=== PATIENT | female | born 1975 | race Asian ===

== ENCOUNTER 2025-01-30 06:32 | Day surgery (SDC) | payer BC ==
[2025-01-27 11:13] LABS: Hematocrit 36.4 % (36.0-46.0)
[2025-01-27 11:15] LABS: Hemoglobin 12.0 g/dL (12.2-16.2); Mean Corpuscular Hemoglobin 26.6 pg (28.0-32.0); Mean Corpuscular Volume 80.5 fL (80.0-100.0); Nucleated Red Blood Cells % 0.0 %
[2025-01-27 11:22] LABS: Urine Protein, UAD Negative (Negative)
[2025-01-27 11:29] LABS: Alanine Aminotransferase 23 U/L (7-40); Alkaline Phosphatase 78 U/L (46-116); Anion Gap 9 (5-15); BUN/Creatinine Ratio 10.1 (10.0-20.0); Bilirubin, Total 0.3 mg/dL (0.2-1.0); Carbon Dioxide 25 mmol/L (20-31); Chloride 107 mmol/L (98-107); Potassium 3.7 mmol/L (3.5-5.1); Sodium 141 mmol/L (136-145); Total Protein 7.9 g/dL (5.7-8.2)
[2025-01-27 11:30] LABS: Glucose 94 mg/dL (74-106)
[2025-01-27 11:31] LABS: Albumin 5.0 g/dL (3.2-4.8); Blood Urea Nitrogen 9 mg/dL (9-23); Calcium 10.4 mg/dL (8.7-10.4); INR 0.96 (0.9-1.15); Partial Thromboplastin Time 27.6 SEC (24.5-34.5); Prothrombin Time 10.2 sec (9.3-11.8)
[~2025-01-30] VITALS: Ht 157.5 cm; Wt 83.9 kg
[~2025-01-30 06:32] MED LIST: AMLO1TAB23 PO; LOSA-535 PO; METO-159 PO
[2025-01-30] MEDS ORDERED: HYDR-4072 PO (07:14)
[2025-01-30] MEDS ORDERED: ZOFR4T PO (07:15)
[2025-01-30] MEDS ORDERED: IBUP-1456 PO (07:15)
[2025-01-30] MEDS ORDERED: fentaNYL CITRATE 100 MCG/2 ML VL ONE (07:56)
[2025-01-30] MEDS ORDERED: PROPOFOL 10 MG/ML 20 ML IV ONE (07:56)
[2025-01-30] MEDS ORDERED: HYDROmorphone HCL 2 MG/ML VL/or syr ONE (08:03)
[2025-01-30] MEDS ORDERED: ONDANSETRON HCL 4 MG/2 ML VIAL ONE (08:03)
[2025-01-30] MEDS: ceFAZolin 2 GM/D5W50ml 50 ML IV ONE (08:05)
--- NOTE | 2025-01-30 08:38 | DVHOP2 ---
Operative Report DATE OF OPERATION: 01/30/25 PREOPERATIVE DIAGNOSES: Abnormal uterine bleeding. POSTOPERATIVE DIAGNOSES: Abnormal uterine bleeding. SURGEON: Jennifer Boss D.O. ANESTHESIOLOGIST: katiana TYPE OF ANESTHESIA : MAC. CONSENT: The patient was informed of the risks and benefits of the procedure. The patient was informed of the risks and benefits of the procedure. These include but are not limited to , complications of anesthesia, postoperative infection, incomplete relief of symptoms, recurrence of symptoms, damage to blood vessels, nerves and tendons, deep venous thrombosis, pulmonary embolism and possible need for repeat surgery in the future. FINDINGS: Cervix is normal. Uterus is 9 weeks size. Adnexa is nonpalpable. Hysteroscopy examination revealed no evidence of myomas. SPECIMEN: C COMPLICATIONS: None BLOOD PRODUCTS USED: None PROCEDURES: Dilation and curettage, hysteroscopy, and endometrial ablation. PROCEDURE IN DETAIL: The patient was taken to the operating room, where he was placed under MAC anesthesia. She was then prepped and draped in the usual sterile manner in dorsal lithotomy position. Bladder was emptied using a straight catheter. Examination under anesthesia revealed the above findings. A weighted speculum was placed in the vagina. Anterior lip of the cervix was grasped using single tooth tenaculum. Cervix was dilated. Uterus was sounded to 9 cm. Hysteroscope was advanced. Survey of uterine cavity revealed no evidence of myoma. Hysteroscope was removed. Endometrial carotene was performed. Endometrial ablation procedure was then performed successfully. Post ablation hysteroscopic findings was consistent with excellent ablation of the entire cavity. No bleeding was noted. All the instruments were removed from the vagina and cervix. Patient tolerated procedure well. She was then taken to the recovery room in stable condition. CONDITION: Stable ESTIMATED BLOOD LOSS: 50 mL Visit Coding OBGYN Date of Service: Jan 30, 2025 Billing Provider: JENNIFER BOSS DO SOLAR PROJECT MANAGER Common Visit Codes: [id number] INP/OBS CARE (HIGH) [employer]AR PROJECT MANAGER Procedure Codes: [id number], SURGICAL JENNIFER BOSS DO Jan 30, 2025 08:38
--- NOTE | 2025-01-30 08:40 | POSTOP ---
Post-Operative Note Post-Operative Note Preop Diagnosis aub Postop Diagnosis: same Operation performed d and c,hysteroscopy endometrial ablation Specimen emc Anesthesia: Mac Anesthesiologist: nuygen Blood Loss(fluid mgmt) 20ml Surgeon Jennifer Boss Implant na Complications & Mgmt none Additional Remarks h and p [id number] Date 01/30/25 Time 08:38 Visit Coding OBGYN Date of Service: Jan 30, 2025 Billing Provider: JENNIFER BOSS DO SILK SCREEN PRINTER MACHINE Common Visit Codes: 40038-[id number] INP/OBS CARE (HIGH) SILK SCREEN PRINTER MACHINE Procedure Codes: [id number], SURGICAL JENNIFER BOSS DO Jan 30, 2025 08:40
[2025-01-30 08:41] VITALS: PULSE 59; RESP 12; TEMP 97.8; O2SAT 95
--- NOTE | 2025-01-30 08:41 | DVHDS2 ---
Physician Discharge Progress N Final Diagnosis: same Operations or Procedures: Operations or Procedures d and c,hysteroscopy endometrial ablation Condition on Discharge: Good Disposition: Home Discharge Instructions: Activity: Light activity Medications: fab casanova Follow Up Care: Specialist: 1w Discharge Statement: "Patient was advised to return to the ER or call 911 if any headaches, dizzine ss, shortness of breath, chest pain, abdominal pain, bleeding, fevers, or worsening of medical condition. Patient was counseled about treatment plan, medications, possible side effects, patientverbalized understanding. All questions were answered to the best of my ability. This discharge took greater then 30 minutes in planning, reviewing documentation, counseling the patient, and discussing with other team members." Visit Coding OBGYN Date of Service: Jan 30, 2025 Billing Provider: JENNIFER ALTAMIRANO DO [employer] INSTRUMENT MAKER Common Visit Codes: [id number] INP/OBS CARE (HIGH) [employer] INSTRUMENT MAKER Procedure Codes: [id number], SURGICAL JENNIFER ALTAMIRANO DO Jan 30, 2025 08:41
[2025-01-30] MEDS ORDERED: MEPERIDINE HCL (25 MG/ML) 1ML VIAL IV PRN (08:45)
[2025-01-30] MEDS ORDERED: HYDROmorphone HCL 2 MG/ML VL/or syr IV PRN (08:45)
[2025-01-30] MEDS ORDERED: ACETAMINOPHEN IV 1000 MG/100ML (10MG/ML) IV PRN (08:45)
[2025-01-30 10:06] VITALS: PULSE 66; RESP 19; O2SAT 96; O2SAT 97
[2025-01-30 10:14] VITALS: PULSE 64; RESP 12; O2SAT 100
[2025-01-30] MEDS: ONDANSETRON HCL 4 MG/2 ML VIAL IV ONE (10:16)
[2025-01-30 10:26] VITALS: BP 136/80; PULSE 64; RESP 13; O2SAT 95
[2025-01-30] MEDS: ALBUTEROL SULF 2.5 MG/0.5ML(0.5%) NEB SOLN NEB ONE (10:29)
[2025-01-30] MEDS: ALBUTEROL SULF 2.5 MG/0.5ML(0.5%) NEB SOLN ONE (10:29)
--- NOTE | 2025-02-03 20:41 | DVHHP ---
ADMIT DATE: 01/30/2025 CHIEF COMPLAINT: Menorrhagia. HISTORY OF PRESENT ILLNESS: The patient is a 49-year-old 4, para 4 with history of abnormal uterine bleeding, menorrhagia. The patient's endometrial biopsy was normal. Her ultrasound revealed 10-week sized uterus. The patient is admitted for D and C hysteroscopy and endometrial ablation. PAST MEDICAL HISTORY: Hypertension. PAST SURGICAL HISTORY: None. SOCIAL HISTORY: None. Four vaginal delivery. ALLERGIES: No known drug allergies. REVIEW OF SYSTEMS: Consistent with HPI. PHYSICAL EXAMINATION: VITAL SIGNS: Stable, afebrile. HEENT: Within normal limits. CARDIOVASCULAR: Regular rate and rhythm. LUNGS: Clear to auscultation. BREASTS: Symmetrical. No masses. ABDOMEN: Soft, nontender. PELVIC: External genitalia within normal limits. Vagina normal. Cervix grossly normal. Uterus 10-week size and adnexa nonpalpable. EXTREMITIES: No clubbing, cyanosis or edema. IMPRESSION: * Menorrhagia. * Abnormal uterine bleeding. PLAN: D and C hysteroscopy and endometrial ablation. Informed consent was obtained. Risks and complications of surgery including infection, bleeding, hematoma formation, injury to bowel or bladder or surrounding organ, postoperative DVT, pulmonary embolism and risks of anesthesia were discussed. Options reviewed. All questions answered. The patient fully understands. She wishes to proceed with planned procedure. DO DRAGAN Martinez TID: [id number] RECEIPT: [id number]
== END 2025-01-30 10:41 | disposition home or self-care (01) ==
LOC: SUR 06:32
PROVIDERS: ATTEND Obstetrics & Gynecology
DX: N93.9 Abnormal uterine and vaginal bleeding, unspecified (principal); N92.0 Excessive and frequent menstruation with regular cycle; I10 Essential (primary) hypertension; E66.01 Morbid (severe) obesity due to excess calories; Z68.33 Body mass index [BMI] 33.0-33.9, adult; Z79.899 Other long term (current) drug therapy
CPT/HCPCS: 36415; 58563; 80053; 81001; 81025; 84702; 85025; 85610; 85730; 86850; 86900; 86901; 88305; 94640; J0690; J1100; J1171; J2405; J2704; J3010